=== PATIENT | female | born 1980 | race Caucasian/White ===

== ENCOUNTER 2018-04-19 21:38 | Inpatient (IN) | payer OTHER ==
[2018-04-19] MEDS ORDERED: ONDANSETRON 4 MG INJ IV (22:30)
[2018-04-19] MEDS ORDERED: HYDROCODONE/APAP (5/325) TAB PO ×2 (22:30)
[2018-04-19] MEDS ORDERED: NACL 0.9% 3 ML SYG IV (22:30)
[2018-04-19] MEDS ORDERED: GLUCAGON 1 MG INJ IM (22:30)
[2018-04-19] MEDS ORDERED: DEXTROSE 50% 50 ML SYRINGE IV ×2 (22:30)
[2018-04-19] MEDS ORDERED: GLUCOSE GEL 15 GRAM TUBE BUCCAL (22:30)
[2018-04-19] MEDS ORDERED: GLUCOSE GEL 15 GRAM TUBE PO ×2 (22:30)
[2018-04-19] MEDS: INSULIN ASPART [NOVOLOG] 3 ML PEN SC ×2 (22:51→22:55)
[2018-04-20] MEDS: ACCU-CHEK XX (02:34)
[2018-04-20 05:52] LABS: ADD MAN DIFF? NO
[2018-04-20 05:56] LABS: BASOPHIL # 0.1 10^3/ul (0.0-0.1); BASOPHILS % 0.8 % (0.0-2.0); EOSINOPHILS # 0.2 10^3/ul (0.0-0.5); EOSINOPHILS % 2.8 % (0.0-7.0); HEMOGLOBIN 12.9 g/dl (12.0-16.0); LYMPHOCYTES # 2.3 10^3/ul (0.8-2.9); LYMPHOCYTES % 28.9 % (15.0-51.0); MEAN CORPUSCULAR HEMOGLOBIN 30.2 pg (29.0-33.0); MEAN CORPUSCULAR HGB CONC 33.9 g/dl (32.0-37.0); MEAN PLATELET VOLUME 9.7 fl (7.4-10.4); MONOCYTE # 0.6 10^3/ul (0.3-0.9); MONOCYTES % 8.1 % (0.0-11.0); NEUTROPHIL # 4.6 10^3/ul (1.6-7.5); PLATELET COUNT 392 10^3/UL (140-415); RED BLOOD COUNT 4.27 10^6/ul (4.20-5.40); RED CELL DISTRIBUTION WIDTH 12.1 % (11.5-14.5)
[2018-04-20 05:56] LABS: WHITE BLOOD COUNT 7.8 10^3/ul (4.8-10.8)
[2018-04-20 06:49] LABS: ALANINE AMINOTRANSFERASE 29 IU/L (13-69); ALBUMIN 3.7 g/dl (3.3-4.9); ALBUMIN/GLOBULIN RATIO 1.02; ALKALINE PHOSPHATASE 90 IU/L (42-121); ANION GAP 15 (5-13); ASPARTATE AMINO TRANSFERASE 33 IU/L (15-46); BILIRUBIN,INDIRECT 0.4 mg/dl (0-1.1); BILIRUBIN,TOTAL 0.4 mg/dl (0.2-1.3); BLOOD UREA NITROGEN 12 mg/dl (7-20); CALCIUM 9.1 mg/dl (8.4-10.2); CARBON DIOXIDE 26 mmol/L (21-31); CHLORIDE 99 mmol/L (97-110); CREATININE 0.49 mg/dl (0.44-1.00); Estimated GFR > 60 mL/min (>60); GLUCOSE 252 mg/dl (70-220); MAGNESIUM 1.8 mg/dl (1.7-2.5); PHOSPHORUS 3.4 mg/dl (2.5-4.9); POTASSIUM 3.9 mmol/L (3.5-5.1); SODIUM 140 mmol/L (135-144); TOTAL PROTEIN 7.3 g/dl (6.1-8.1)
[2018-04-20] MEDS: INSULIN ASPART [NOVOLOG] 3 ML PEN SC ×4 (08:37→21:03)
[2018-04-20] MEDS ORDERED: VANCOMYCIN IV PER PHARMACY XX (10:00)
[2018-04-20] MEDS: CEFEPIME 1GM/50 ML (PMX) 50 ML IVPB ×2 (10:52→21:32)
[2018-04-20] MEDS: VANCOMYCIN HCL 2 GM in SOD CHLORIDE 0.9% 500 ML IVPB (12:58)
[2018-04-20] MEDS: ACETAMINOPHEN 325 MG TAB PO (12:58)
[2018-04-20] MEDS: SOD CHLORIDE 0.9% 100 ML (13:24)
[2018-04-20] MEDS: IOHEXOL 300MG/ML 150 ML BTL (13:24)
[2018-04-20] MEDS: VANCOMYCIN 1 GM 250 ML IVPB (19:33)
[2018-04-21] MEDS ORDERED: VANCOMYCIN HCL 1.5 GM in SOD CHLORIDE 0.9% 250 ML IVPB
[2018-04-21] MEDS: ACCU-CHEK XX (02:26)
[2018-04-21] MEDS: VANCOMYCIN 1 GM 250 ML IVPB ×2 (04:34→12:43)
[2018-04-21 06:05] LABS: ADD MAN DIFF? NO
[2018-04-21 06:09] LABS: BASOPHIL # 0.1 10^3/ul (0.0-0.1); BASOPHILS % 0.6 % (0.0-2.0); EOSINOPHILS # 0.2 10^3/ul (0.0-0.5); EOSINOPHILS % 2.5 % (0.0-7.0); HEMATOCRIT 38.7 % (37.0-47.0); HEMOGLOBIN 13.1 g/dl (12.0-16.0); LYMPHOCYTES # 2.2 10^3/ul (0.8-2.9); LYMPHOCYTES % 25.4 % (15.0-51.0); MEAN CORPUSCULAR HEMOGLOBIN 29.8 pg (29.0-33.0); MEAN CORPUSCULAR HGB CONC 33.9 g/dl (32.0-37.0); MEAN PLATELET VOLUME 9.3 fl (7.4-10.4); MONOCYTE # 0.7 10^3/ul (0.3-0.9); MONOCYTES % 7.8 % (0.0-11.0); NEUTROPHIL # 5.6 10^3/ul (1.6-7.5); NEUTROPHILS % 63.4 % (39.0-77.0); PLATELET COUNT 394 10^3/UL (140-415); RED CELL DISTRIBUTION WIDTH 12.1 % (11.5-14.5)
[2018-04-21 06:09] LABS: WHITE BLOOD COUNT 8.8 10^3/ul (4.8-10.8)
[2018-04-21 06:30] LABS: ANION GAP 9 (5-13); BLOOD UREA NITROGEN 11 mg/dl (7-20); CARBON DIOXIDE 25 mmol/L (21-31); CHLORIDE 106 mmol/L (97-110); Estimated GFR > 60 mL/min (>60); GLUCOSE 249 mg/dl (70-220); POTASSIUM 4.1 mmol/L (3.5-5.1); SODIUM 140 mmol/L (135-144)
[2018-04-21 06:42] LABS: HEMOGLOBIN A1C 10.9 % (0-5.9)
[2018-04-21] MEDS: INSULIN GLARGINE [LANTus] (100 UNITS/ML) SYG SC (08:53)
[2018-04-21] MEDS: INSULIN ASPART [NOVOLOG] 3 ML PEN SC ×4 (09:00→21:23)
[2018-04-21] MEDS: CEFEPIME 1GM/50 ML (PMX) 50 ML IVPB ×2 (09:05→21:23)
[2018-04-21 11:57] LABS: VANCOMYCIN,TROUGH 9.7 ug/ml (10.0-20.0)
[2018-04-21] MEDS: metFORMIN 500 MG TAB PO (17:34)
[2018-04-21] MEDS: VANCOMYCIN HCL 1.25 GM in SOD CHLORIDE 0.9% 250 ML IVPB (21:23)
[2018-04-22] MEDS: ACCU-CHEK XX (02:04)
[2018-04-22] MEDS: VANCOMYCIN HCL 1.25 GM in SOD CHLORIDE 0.9% 250 ML IVPB ×3 (05:02→21:25)
[2018-04-22] MEDS: metFORMIN 500 MG TAB PO ×2 (08:38→17:44)
[2018-04-22] MEDS: INSULIN ASPART [NOVOLOG] 3 ML PEN SC ×4 (08:40→21:00)
[2018-04-22] MEDS: INSULIN GLARGINE [LANTus] (100 UNITS/ML) SYG SC (08:41)
[2018-04-22] MEDS: CEFEPIME 1GM/50 ML (PMX) 50 ML IVPB (08:45)
[2018-04-22] MEDS: CEFTRIAXONE 1 GM/50 ML (PMX) 50 ML IVPB (18:56)
[2018-04-22 20:36] LABS: VANCOMYCIN,TROUGH 11.3 ug/ml (10.0-20.0)
[2018-04-23] MEDS: ACCU-CHEK XX (02:00)
[2018-04-23] MEDS: VANCOMYCIN HCL 1.25 GM in SOD CHLORIDE 0.9% 250 ML IVPB ×3 (04:50→20:44)
[2018-04-23 06:03] LABS: CREATININE 0.44 mg/dl (0.44-1.00)
[2018-04-23 06:03] LABS: BLOOD UREA NITROGEN 7 mg/dl (7-20)
[2018-04-23] MEDS: metFORMIN 500 MG TAB PO ×2 (08:16→17:33)
[2018-04-23] MEDS: INSULIN GLARGINE [LANTus] (100 UNITS/ML) SYG SC (08:21)
[2018-04-23] MEDS: INSULIN ASPART [NOVOLOG] 3 ML PEN SC ×4 (08:21→20:51)
[2018-04-23] MEDS: CEFTRIAXONE 1 GM/50 ML (PMX) 50 ML IVPB (17:32)
[2018-04-23] MEDS: LACTOBACILLUS RHAMNOSUS CAP PO (20:44)
[2018-04-24] MEDS: ACCU-CHEK XX (02:23)
[2018-04-24] MEDS: DIPHENHYDRAMINE 25 MG CAP PO (03:09)
[2018-04-24 04:58] LABS: ADD MAN DIFF? NO
[2018-04-24 05:04] LABS: BASOPHIL # 0.1 10^3/ul (0.0-0.1); BASOPHILS % 0.8 % (0.0-2.0); EOSINOPHILS # 0.3 10^3/ul (0.0-0.5); EOSINOPHILS % 4.1 % (0.0-7.0); HEMATOCRIT 36.8 % (37.0-47.0); HEMOGLOBIN 12.3 g/dl (12.0-16.0); LYMPHOCYTES # 2.6 10^3/ul (0.8-2.9); LYMPHOCYTES % 32.6 % (15.0-51.0); MEAN CORPUSCULAR HEMOGLOBIN 29.8 pg (29.0-33.0); MEAN CORPUSCULAR HGB CONC 33.4 g/dl (32.0-37.0); MEAN CORPUSCULAR VOLUME 89.1 fl (82.0-101.0); MEAN PLATELET VOLUME 9.2 fl (7.4-10.4); MONOCYTE # 0.7 10^3/ul (0.3-0.9); MONOCYTES % 8.5 % (0.0-11.0); NEUTROPHIL # 4.3 10^3/ul (1.6-7.5); NEUTROPHILS % 53.7 % (39.0-77.0); PLATELET COUNT 384 10^3/UL (140-415); RED BLOOD COUNT 4.13 10^6/ul (4.20-5.40); RED CELL DISTRIBUTION WIDTH 12.2 % (11.5-14.5)
[2018-04-24] MEDS: VANCOMYCIN HCL 1.25 GM in SOD CHLORIDE 0.9% 250 ML IVPB ×3 (05:32→20:56)
[2018-04-24 05:34] LABS: MAGNESIUM 1.7 mg/dl (1.7-2.5)
[2018-04-24 05:34] LABS: PHOSPHORUS 4.4 mg/dl (2.5-4.9)
[2018-04-24 05:35] LABS: ANION GAP 4 (5-13); BLOOD UREA NITROGEN 6 mg/dl (7-20); CALCIUM 9.2 mg/dl (8.4-10.2); CARBON DIOXIDE 26 mmol/L (21-31); CHLORIDE 109 mmol/L (97-110); CREATININE 0.48 mg/dl (0.44-1.00); Estimated GFR > 60 mL/min (>60); GLUCOSE 170 mg/dl (70-220); POTASSIUM 3.9 mmol/L (3.5-5.1); SODIUM 139 mmol/L (135-144)
[2018-04-24] MEDS: metFORMIN 500 MG TAB PO ×2 (08:47→18:04)
[2018-04-24] MEDS: LACTOBACILLUS RHAMNOSUS CAP PO ×2 (08:47→20:56)
[2018-04-24] MEDS: INSULIN GLARGINE [LANTus] (100 UNITS/ML) SYG SC (09:04)
[2018-04-24] MEDS: INSULIN ASPART [NOVOLOG] 3 ML PEN SC ×4 (09:04→20:59)
[2018-04-24] MEDS: CEFTRIAXONE 1 GM/50 ML (PMX) 50 ML IVPB (17:15)
[2018-04-24] MEDS: ENOXAPARIN 40 MG/0.4 ML SYG SC ×2 (20:59→21:38)
[2018-04-25] MEDS: ACCU-CHEK XX (02:00)
[2018-04-25 05:38] LABS: ADD MAN DIFF? NO
[2018-04-25] MEDS: VANCOMYCIN HCL 1.25 GM in SOD CHLORIDE 0.9% 250 ML IVPB ×3 (05:39→21:17)
[2018-04-25 05:50] LABS: WHITE BLOOD COUNT 7.7 10^3/ul (4.8-10.8)
[2018-04-25 05:50] LABS: BASOPHIL # 0.1 10^3/ul (0.0-0.1); BASOPHILS % 0.8 % (0.0-2.0); EOSINOPHILS # 0.3 10^3/ul (0.0-0.5); EOSINOPHILS % 3.8 % (0.0-7.0); HEMATOCRIT 38.1 % (37.0-47.0); HEMOGLOBIN 13.1 g/dl (12.0-16.0); LYMPHOCYTES # 2.6 10^3/ul (0.8-2.9); LYMPHOCYTES % 33.5 % (15.0-51.0); MEAN CORPUSCULAR HEMOGLOBIN 30.2 pg (29.0-33.0); MEAN CORPUSCULAR HGB CONC 34.4 g/dl (32.0-37.0); MEAN CORPUSCULAR VOLUME 87.8 fl (82.0-101.0); MEAN PLATELET VOLUME 9.5 fl (7.4-10.4); MONOCYTE # 0.6 10^3/ul (0.3-0.9); NEUTROPHIL # 4.2 10^3/ul (1.6-7.5); NEUTROPHILS % 53.6 % (39.0-77.0); PLATELET COUNT 414 10^3/UL (140-415); RED BLOOD COUNT 4.34 10^6/ul (4.20-5.40); RED CELL DISTRIBUTION WIDTH 12.1 % (11.5-14.5)
[2018-04-25 06:10] LABS: ANION GAP 11 (5-13); BLOOD UREA NITROGEN 9 mg/dl (7-20); CALCIUM 9.7 mg/dl (8.4-10.2); CARBON DIOXIDE 24 mmol/L (21-31); CHLORIDE 104 mmol/L (97-110); CREATININE 0.52 mg/dl (0.44-1.00); Estimated GFR > 60 mL/min (>60); GLUCOSE 155 mg/dl (70-220); POTASSIUM 3.8 mmol/L (3.5-5.1); SODIUM 139 mmol/L (135-144)
[2018-04-25 06:11] LABS: INR 0.93; PROTIME 12.6 Sec (11.9-14.9)
[2018-04-25] MEDS: LACTOBACILLUS RHAMNOSUS CAP PO ×2 (08:50→21:20)
[2018-04-25] MEDS: metFORMIN 500 MG TAB PO ×2 (08:50→18:28)
[2018-04-25] MEDS: INSULIN ASPART [NOVOLOG] 3 ML PEN SC ×4 (08:56→21:00)
[2018-04-25] MEDS: INSULIN GLARGINE [LANTus] (100 UNITS/ML) SYG SC (08:56)
[2018-04-25] MEDS: ACETAMINOPHEN 325 MG TAB PO (13:03)
[2018-04-25] MEDS: CEFTRIAXONE 1 GM/50 ML (PMX) 50 ML IVPB (19:46)
[2018-04-25] MEDS: ENOXAPARIN 40 MG/0.4 ML SYG SC (21:31)
[2018-04-25] MEDS: DIPHENHYDRAMINE 50 MG INJ IV (23:12)
[2018-04-26] MEDS: ACCU-CHEK XX (02:00)
[2018-04-26] MEDS: VANCOMYCIN HCL 1.25 GM in SOD CHLORIDE 0.9% 250 ML IVPB ×2 (05:20→13:36)
[2018-04-26 05:40] LABS: ADD MAN DIFF? NO
[2018-04-26 05:50] LABS: WHITE BLOOD COUNT 7.8 10^3/ul (4.8-10.8)
[2018-04-26 05:50] LABS: BASOPHIL # 0.1 10^3/ul (0.0-0.1); BASOPHILS % 0.9 % (0.0-2.0); EOSINOPHILS # 0.3 10^3/ul (0.0-0.5); EOSINOPHILS % 4.4 % (0.0-7.0); HEMATOCRIT 36.8 % (37.0-47.0); HEMOGLOBIN 12.5 g/dl (12.0-16.0); LYMPHOCYTES # 2.5 10^3/ul (0.8-2.9); LYMPHOCYTES % 32.5 % (15.0-51.0); MEAN CORPUSCULAR HEMOGLOBIN 30.1 pg (29.0-33.0); MEAN CORPUSCULAR VOLUME 88.7 fl (82.0-101.0); MEAN PLATELET VOLUME 9.5 fl (7.4-10.4); MONOCYTE # 0.6 10^3/ul (0.3-0.9); NEUTROPHIL # 4.2 10^3/ul (1.6-7.5); NEUTROPHILS % 53.9 % (39.0-77.0); PLATELET COUNT 397 10^3/UL (140-415); RED BLOOD COUNT 4.15 10^6/ul (4.20-5.40); RED CELL DISTRIBUTION WIDTH 12.1 % (11.5-14.5)
[2018-04-26 06:19] LABS: ANION GAP 9 (5-13); BLOOD UREA NITROGEN 10 mg/dl (7-20); CALCIUM 9.6 mg/dl (8.4-10.2); CARBON DIOXIDE 23 mmol/L (21-31); CHLORIDE 106 mmol/L (97-110); CREATININE 0.49 mg/dl (0.44-1.00); Estimated GFR > 60 mL/min (>60); GLUCOSE 152 mg/dl (70-220); POTASSIUM 3.7 mmol/L (3.5-5.1); SODIUM 138 mmol/L (135-144)
[2018-04-26 06:26] LABS: PHOSPHORUS 5.1 mg/dl (2.5-4.9)
[2018-04-26 06:26] LABS: CHOL/HDL RATIO 3.6 RATIO; CHOLESTEROL 184 mg/dl (100-200); HDL CHOLESTEROL 50 mg/dl (34-82); LDL CHOLESTEROL,CALCULATED 103 mg/dl; MAGNESIUM 1.5 mg/dl (1.7-2.5); TRIGLYCERIDES 156 mg/dl (0-149)
[2018-04-26] MEDS: metFORMIN 500 MG TAB PO ×2 (08:27→17:51)
[2018-04-26] MEDS: LACTOBACILLUS RHAMNOSUS CAP PO (08:27)
[2018-04-26] MEDS: INSULIN ASPART [NOVOLOG] 3 ML PEN SC ×3 (08:30→17:47)
[2018-04-26] MEDS: INSULIN GLARGINE [LANTus] (100 UNITS/ML) SYG SC (08:30)
[2018-04-26] MEDS: LIDOCAINE 1%/EPI (1:100,000) (MDV) 20 ML INJ (15:00)
[2018-04-26] MEDS: CEFTRIAXONE 1 GM/50 ML (PMX) 50 ML IVPB (17:00)
[2018-04-26] MEDS: MAGNESIUM SULFATE 2 GM/50 ML 50 ML IVPB (17:32)
== END 2018-04-26 18:55 | disposition home or self-care (01) | DRG 584 ==
LOC: 2NE 21:38
PROVIDERS: Internal Medicine
PROC: 0HBU0ZX Excision of Left Breast, Open Approach, Diagnostic (ICD-10-PCS; principal; 2018-04-26)
DX: N61.1 Abscess of the breast and nipple (principal); R65.10 Systemic inflammatory response syndrome (SIRS) of non-infectious origin without acute organ dysfunction; E66.9 Obesity, unspecified; Z68.31 Body mass index [BMI] 31.0-31.9, adult; E11.65 Type 2 diabetes mellitus with hyperglycemia; K76.0 Fatty (change of) liver, not elsewhere classified
CPT/HCPCS: 71260; 71552; 76642; 80048; 80053; 80061; 80202; 82565; 82962; 83036; 83735; 84100; 84443; 84520; 85025; 85610; 87040; 87070; 87081; 88307